=== PATIENT | female | born 1955 | race Hispanic/Latino ===

== ENCOUNTER 2018-06-04 14:24 | Outpatient (CLI) | payer OTHER | END 2018-06-04 14:25 | disposition home or self-care (01) | LOC: BICMAMMO 14:24 | PROVIDERS: ATTEND Family Medicine | DX: Z12.31 Encounter for screening mammogram for malignant neoplasm of breast (principal); R92.1 Mammographic calcification found on diagnostic imaging of breast | CPT/HCPCS: 77063; 77067 ==

== ENCOUNTER 2018-12-12 13:37 | Outpatient (CLI) | payer BC ==
[2018-12-12 14:47] LABS: PTT 29.1 SEC (22.9-36.1); Prothrombin Time 12.9 SEC (12.0-14.7)
[2018-12-12 15:08] LABS: ALT (SGPT) 12 U/L (8-55); AST (SGOT) 11 U/L (5-34); Albumin 4.5 g/dL (3.4-4.8); Alkaline Phosphatase 119 U/L (40-150); Anion Gap 12 mmol/L (10-20); BUN (Urea Nitrogen) 15 mg/dL (9.8-20.1); Bilirubin, Direct 0.3 mg/dL (0.1-0.3); Bilirubin, Total 0.7 mg/dL (0.2-1.2); Calc. Creatinine Clearance 0 mL/min (70-130); Calcium 9.7 mg/dL (7.8-10.44); Carbon Dioxide 27 mmol/L (23-31); Chloride 104 mmol/L (98-107); Estimated GFR-MDRD Greater than 90; Globulin 2.7 g/dL (2.4-3.5); Glucose 91 mg/dL (80-115); Potassium 3.8 mmol/L (3.5-5.1); Protein, Total 7.2 g/dL (6.0-8.3); Sodium 139 mmol/L (136-145)
== END 2018-12-12 13:38 | disposition home or self-care (01) ==
LOC: LABBT 13:37
PROVIDERS: ATTEND Internal Medicine Cardiovascular Disease
DX: Z01.812 Encounter for preprocedural laboratory examination (principal); R94.39 Abnormal result of other cardiovascular function study
CPT/HCPCS: 80053; 80076; 85610; 85730

== ENCOUNTER 2018-12-14 07:01 | Day surgery (SDC) | payer BC ==
[2018-12-13 14:16] VITALS: BMI 31.8
[2018-12-14 07:52] LABS: Cardiac Risk 2.7 (Less than 4.5)
[2018-12-14] MEDS ORDERED: Midazolam HCl 2 mg/2 ml Vial ONE (08:02)
[2018-12-14] MEDS ORDERED: Acetaminophen/Codeine 30-300mg Tablet ONE (11:30)
--- NOTE | 2018-12-14 13:04 | CON ---
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 Her problems are, 1. Episode of palpitations, near syncope, prompting an event monitor in November 2018 demonstrating a wide-complex arrhythmia runs. 2. Structurally normal heart by left heart catheterization, normal LVEF and normal coronary arteries on 12/14/2018. No history of significant structural heart disease as per echo per Dr. Wharton's report. 3. Personal history of diabetes, hyperlipidemia, cholesterolemia, and hypothyroidism on replacement. 4. Family history of sudden cardiac of the brother while zip lining at age 55 and SVT ablation of a sister. 5. History of asthma. ALLERGIES: NONE. MEDICATIONS AT HOME: Include Tresiba, metformin, Lipitor, levothyroxine, losartan, aspirin, biotin, Ocuvite, metoprolol succinate. 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 The episode lasted about a minute. She did not completely pass out, but was in significant distress and her pulse oximeter demonstrated heart rates in the 190s. She has had her nurse prepare an EKG, but by the time she was back in normal rhythm. She had a similar episode also on November 30 most recently. She denies angina-like discomforts. No PND, orthopnea, or lower extremity with fluid overload. No fever, chills, or cough. No PND or orthopnea. Rest of 12-point system otherwise unremarkable. PAST MEDICAL HISTORY: As above. SOCIAL HISTORY: She is a physician. Denies smoking, EtOH, or drug abuse. FAMILY HISTORY: Significant for a brother suffering a sudden cardiac [place] and a sister with SVT ablation recently. OBJECTIVE DATA: VITAL SIGNS: Blood pressure is 138/80, heart rate is 68, respirations are normal range. The patient appears afebrile. GENERAL: Reveals an alert and oriented woman, mildly elevated BMI, in no apparent distress. NECK: Supple. Jugular veins not distended. CHEST: Coarse without wheezing. Normal breath sounds are heard. No dullness. HEART: The heart sounds are regular to rate and rhythm. No gallop or significant murmur is appreciated. ABDOMEN: Benign. Bowel sounds are positive. EXTREMITIES: Lower extremities without edema, clubbing, or cyanosis. Pulses are adequate. NEUROLOGIC: The patient is nonfocal. MUSCULOSKELETAL: Without joint swelling or deformity. SKIN: Without rash. DATABASE: The EKG is reviewed from Dr. Wharton's office revealing normal EKG. No signs of pre-excitation. Normal QT interval at 358 milliseconds. The event monitor strips were reviewed from December 06 revealing about 10 seconds duration of a wide-complex arrhythmia preceded by P-waves markedly different than the baseline , narrow complex QRS, suggestive of likely nonsustained ventricular tachycardia. LABORATORY DATA: Sodium is 139, potassium is 3.8, BUN is 15, creatinine is 0.64. AST and ALT are normal. TSH is 0.0179 in 2014. More recent TSH was in normal range according to her. White blood cell count is 7.9, hemoglobin is 14.8, platelet count is 311. 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 Also, very concerning is the family history of sudden cardiac of her brother, likely due to a ventricular fibrillation arrest. 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 Less likely would be related to subclinical cardiomyopathy. So far, there is no evidence of or although ARVD might be reasonable to be ruled out with cardiac MRI. We could consider risk stratifying EP study. If severe, hemodynamically significant ventricular tachy-arrhythmias are induced, ICD implantation could be a potential consideration. On the other hand, if recurrent VT is seen, ablation therapy is a likely better option. We had also discussed pros and cons of a genetic testing, and we will decide on that at the next followup visit. In the meantime, I agree with the initiated beta-uziel therapy. If indeed, no additional cardiomyopathy found, the class 1C agents also could be helpful to suppress these arrhythmias, if medical therapy is preferred. These options were detailed to her for now. She is undecided and we will have her arrange a followup in our office. Thank you again for allowing me to participate in the care of this patient. Job ID: [id number] IVONNE
[2018-12-14] MEDS ORDERED: Iopamidol 370 76% 100 ML VIAL ONE (16:59)
== END 2018-12-14 13:39 | disposition home or self-care (01) ==
LOC: CCL 07:01
PROVIDERS: ATTEND Internal Medicine Cardiovascular Disease
PROC: B2111ZZ Fluoroscopy of Multiple Coronary Arteries using Low Osmolar Contrast (ICD-10-PCS; principal; 2018-12-14)
PROC: 4A023N7 Measurement of Cardiac Sampling and Pressure, Left Heart, Percutaneous Approach (ICD-10-PCS; principal; 2018-12-14)
DX: R94.39 Abnormal result of other cardiovascular function study (principal); I47.2 Ventricular tachycardia; E11.9 Type 2 diabetes mellitus without complications; J45.909 Unspecified asthma, uncomplicated; E78.5 Hyperlipidemia, unspecified; E03.9 Hypothyroidism, unspecified; Z79.84 Long term (current) use of oral hypoglycemic drugs; Z79.82 Long term (current) use of aspirin; Z79.899 Other long term (current) drug therapy
CPT/HCPCS: 36415; 36416; 80061; 93458; 99152; 99153; C1769; J1644; J2250; Q9967

== ENCOUNTER 2020-07-08 13:03 | Outpatient (CLI) | payer MEDICARE ==
--- NOTE | 2020-07-08 13:41 | MMO ---
Bilateral MAMMO Bilat Screen [facility]. CLINICAL HISTORY: Patient is 64 years old and is seen for screening. The patient has no family history of breast cancer. The patient has no personal history of cancer. VIEWS: The views performed were: bilateral craniocaudal with tomosynthesis and bilateral mediolateral oblique with tomosynthesis. FILMS COMPARED: The present examination has been compared to prior imaging studies performed at [facility] on 05/12/2017 and 06/04/2018, and at [facility] on 01/26/2015 and 04/01/2016. This study has been interpreted with the assistance of computer-aided detection. MAMMOGRAM FINDINGS: There are scattered fibroglandular densities. Benign calcifications are noted bilaterally. There are no suspicious masses, suspicious calcifications, or new areas of architectural distortion. IMPRESSION: THERE IS NO MAMMOGRAPHIC EVIDENCE OF MALIGNANCY. A ROUTINE FOLLOW-UP MAMMOGRAM IN 1 YEAR IS RECOMMENDED. THE RESULTS OF THIS EXAM WERE SENT TO THE PATIENT. ACR BI-RADS Category 2 - Benign finding MAMMOGRAPHY NOTE: 1. A negative mammogram report should not delay a biopsy if a dominant of clinically suspicious mass is present. 2. Approximately 10% to 15% of breast cancers are not detected by mammography. 3. Adenosis and dense breasts may obscure an underlying neoplasm. Reported by: ANTOLIN OLSEN MD Electonically Signed: [id number]
== END 2020-07-08 13:04 | disposition home or self-care (01) ==
LOC: BICMAMMO 13:03
PROVIDERS: ATTEND Family Medicine
DX: Z12.31 Encounter for screening mammogram for malignant neoplasm of breast (principal)
CPT/HCPCS: 77063; 77067

== ENCOUNTER 2021-07-29 14:29 | Outpatient (CLI) | payer MEDICARE | END 2021-07-29 14:30 | disposition home or self-care (01) | LOC: BICMAMMO 14:29 | PROVIDERS: ATTEND Family Medicine | DX: Z12.31 Encounter for screening mammogram for malignant neoplasm of breast (principal) | CPT/HCPCS: 77063; 77067 ==

== ENCOUNTER 2023-07-21 07:06 | Outpatient (CLI) | payer BC ==
[2023-07-21 08:01] LABS: #Basophils 0.1 10x3/uL (0.0-0.2); #Eosinphils 0.3 10x3/uL (0.0-0.5); #Monocytes 0.6 10x3/uL (0.0-1.1); #Neutrophils 6.8 10x3/uL (1.5-8.4); %Basophils 0.7 % (0.0-2.0); %Eosinophils 3.1 % (0.0-6.0); %Monocytes 6.1 % (0.0-10.0); %Neutrophils 72.9 % (40.0-75.0); Hematocrit 36.6 % (34.9-44.5); Hemoglobin 11.6 g/dL (12.0-15.5); Mean Corpuscular HGB CONC 31.7 g/dL (32.0-36.0); Mean Corpuscular Volume 85.1 fl (81.6-98.3); Mean Platelet Volume 9.6 fl (7.4-10.4); Platelet Count 337 10x3/uL (150-450); RBC Distribution Width 14.1 % (11.5-14.5); White Blood Cell (WBC) Count 9.3 10x3/uL (3.5-10.5)
[2023-07-21 08:14] LABS: INR-International Normal Ratio 0.9; Prothrombin Time 9.9 sec (9.5-12.1)
[2023-07-21 13:45] LABS: Hemoglobin A1c 6.1 % (4.0-6.0)
== END 2023-07-21 07:07 | disposition home or self-care (01) ==
LOC: LABBT 07:06
PROVIDERS: ATTEND Orthopaedic Surgery
DX: Z01.818 Encounter for other preprocedural examination (principal); M17.12 Unilateral primary osteoarthritis, left knee
CPT/HCPCS: 83036; 85025; 85610; 87081; 93005; 93010

== ENCOUNTER 2023-07-25 05:51 | Observation (INO) | payer BC ==
[2023-07-21 07:43] VITALS: BMI 26.3
[2023-07-25] MEDS ORDERED: Midazolam HCl 2 mg/2 ml Vial ONE (06:18)
[2023-07-25] MEDS ORDERED: PROPOFOL 20 ML ONE (06:18)
[2023-07-25] MEDS ORDERED: fentaNYL PF 100 MCG/2 ML SYRINGE ONE (06:18)
[2023-07-25] MEDS ORDERED: Bupivacaine 0.25% HCL 30 ML VIAL ONE (06:31)
[2023-07-25] MEDS ORDERED: EPINEPHrine 1 MG/ML VIAL ONE (06:31)
[2023-07-25] MEDS ORDERED: Tranexamic Acid 1,000 MG/10 ML VIAL ONE (06:36)
[2023-07-25] MEDS ORDERED: Sodium Chloride 0.9% 100 ML ONE ×2 (06:36→06:50)
[2023-07-25] MEDS ORDERED: Vancomycin 1 GM/200 ML (FROZEN) BAG ONE (06:36)
[2023-07-25] MEDS ORDERED: Lidocaine 1% (PF) 30 ML VIAL ONE (06:48)
[2023-07-25] MEDS ORDERED: CEFAZOLIN 2 GM VIAL ONE (06:50)
[2023-07-25] MEDS ORDERED: Ondansetron PF 4 MG/2 ML Vial ONE ×2 (06:55→08:09)
[2023-07-25] MEDS ORDERED: Ketorolac Tromethamine 30 MG/ML VIAL ONE ×2 (06:55→08:44)
[2023-07-25] MEDS ORDERED: diphenhydrAMINE 50 MG/ML VIAL ONE (06:55)
[2023-07-25] MEDS ORDERED: Lidocaine 1% PF 5 ML VIAL ONE (06:55)
[2023-07-25] MEDS ORDERED: PROPOFOL 200 MG/20 ML VIAL ONE (06:55)
[2023-07-25] MEDS ORDERED: Bupivacaine PF 0.5% 30 ML VIAL ONE (07:12)
[2023-07-25] MEDS ORDERED: fentaNYL 50 mcg/mL 1 mL Vial SLOW IVP PRN (07:46)
[2023-07-25] MEDS ORDERED: HYDROcodone/Acetaminophen 10/325 mg Tablet PO PRN ×2 (08:00)
[2023-07-25] MEDS ORDERED: traMADol HCl 50 MG TAB PO PRN ×2 (08:00)
[2023-07-25] MEDS ORDERED: Promethazine HCl 25 MG/ML VIAL IM PRN ×3 (08:00→09:23)
[2023-07-25] MEDS ORDERED: Ondansetron PF 4 MG/2 ML Vial IVP PRN ×2 (08:00→09:23)
[2023-07-25] MEDS ORDERED: Ropivacaine 0.2% 550 ML 550 ML NERVE BLCK SCH (08:00)
[2023-07-25] MEDS ORDERED: Zolpidem Tartrate 5 MG TAB PO PRN ×2 (08:00→09:23)
[2023-07-25] MEDS ORDERED: fentaNYL 50 mcg/mL 1 mL Vial ONE ×2 (08:02→09:05)
[2023-07-25] MEDS ORDERED: Meperidine HCl/PF 25 MG/ML VIAL SLOW IVP PRN (08:06)
[2023-07-25] MEDS ORDERED: Ondansetron HCl/PF 4 MG/2 ML Vial IVP PRN (08:06)
[2023-07-25] MEDS ORDERED: HYDROmorphone 2 MG/ML VIAL SLOW IVP PRN (08:06)
[2023-07-25] MEDS ORDERED: Dexamethasone 4 mg/ml Vial ONE (08:09)
[2023-07-25] MEDS ORDERED: Ferrous Gluconate 324 MG TAB PO SCH (09:00)
[2023-07-25] MEDS ORDERED: OZEMPIC 1 MG SC SCH (09:00)
[2023-07-25] MEDS ORDERED: diphenhydrAMINE 25 MG CAP PO PRN (09:23)
[2023-07-25] MEDS ORDERED: Acetaminophen 325 MG TAB PO PRN (09:23)
[2023-07-25] MEDS: Sodium Chloride 0.9% 1,000 ML IV SCH ×2 (11:11→20:32)
[2023-07-25] MEDS: Senokot S 8.6-50 MG TAB PO SCH ×2 (11:11→20:31)
[2023-07-25] MEDS: Multivitamin W/ Minerals 1 TAB PO SCH (11:11)
[2023-07-25 13:33] LABS: #Basophils 0.1 thou/uL (0.0-0.2); #Eosinphils 0.1 thou/uL (0.0-0.7); #Monocytes 0.6 thou/uL (0.11-0.59); #Neutrophils 8.4 thou/uL (1.40-6.50); %Basophils 0.5 % (0.0-1.0); %Eosinophils 1.3 % (0.0-10.0); %Lymphocytes 14.7 % (21.0-51.0); %Monocytes 5.4 % (0.0-10.0); %Neutrophils 77.7 % (42.0-75.0); Hematocrit 33.3 % (36.0-47.0); Hemoglobin 10.5 g/dL (12.0-16.0); Mean Corpuscular HGB CONC 31.5 g/dL (32.0-36.0); Mean Corpuscular Hemoglobin 27.4 pg (27.0-31.0); Mean Corpuscular Volume 86.9 fl (78.0-98.0); Platelet Count 349 10x3/uL (130-400); Red Blood Cell (RBC) Count 3.83 mill/uL (4.20-5.40); White Blood Cell (WBC) Count 10.8 10x3/uL (4.8-10.8)
[2023-07-25 13:53] LABS: Anion Gap 12 mmol/L (10-20); BUN (Urea Nitrogen) 5 mg/dL (9.8-20.1); Calc. Creatinine Clearance 96 mL/min (70-130); Calcium 8.4 mg/dL (7.8-10.44); Carbon Dioxide 27 mmol/L (23-31); Chloride 104 mmol/L (98-107); Estimated GFR 99; Glucose 87 mg/dL (80-115); Potassium 3.7 mmol/L (3.5-5.1); Sodium 139 mmol/L (136-145)
[2023-07-25] MEDS: CEFAZOLIN 2 GM in Sodium Chloride 0.9% 100 ML IVPB SCH ×2 (14:21→22:17)
[2023-07-25] MEDS: Ketorolac Tromethamine 30 MG/ML VIAL IVP SCH ×3 (14:29→23:30)
[2023-07-25] MEDS ORDERED: Mometasone 200 MCG/Formoterol 5 MCG 120 PUFF INHALER INH SCH (18:30)
[2023-07-25] MEDS: Mometasone 200 MCG/Formoterol 5 MCG 120 PUFF INHALER INH SCH (18:52)
[2023-07-25] MEDS ORDERED: Montelukast Sodium 10 mg Tablet PO SCH (21:00)
[2023-07-25] MEDS ORDERED: Atorvastatin Calcium 20 MG TAB PO SCH ×2 (21:00)
[2023-07-26] MEDS ORDERED: Levothyroxine Sodium 75 MCG TAB PO SCH (06:00)
[2023-07-26 06:01] LABS: Hematocrit 29.7 % (36.0-47.0); Hemoglobin 9.3 g/dL (12.0-16.0); Mean Corpuscular HGB CONC 31.3 g/dL (32.0-36.0); Mean Corpuscular Hemoglobin 26.8 pg (27.0-31.0); Mean Corpuscular Volume 85.6 fl (78.0-98.0); Mean Platelet Volume 9.5 fL (7.4-10.4); Platelet Count 326 10x3/uL (130-400); Red Blood Cell (RBC) Count 3.47 mill/uL (4.20-5.40); White Blood Cell (WBC) Count 8.3 10x3/uL (4.8-10.8)
[2023-07-26] MEDS: Ketorolac Tromethamine 30 MG/ML VIAL IVP SCH ×2 (06:22→13:44)
[2023-07-26] MEDS: Mometasone 200 MCG/Formoterol 5 MCG 120 PUFF INHALER INH SCH (07:32)
[2023-07-26] MEDS: Sodium Chloride 0.9% 1,000 ML IV SCH (07:46)
[2023-07-26] MEDS ORDERED: metFORMIN 500 MG TAB PO SCH (08:00)
[2023-07-26] MEDS ORDERED: Cyanocobalamin (Vitamin B-12) 1,000 MCG TAB PO SCH ×2 (09:00)
[2023-07-26] MEDS ORDERED: Apixaban 2.5 MG TAB PO SCH ×2 (09:00→21:00)
[2023-07-26] MEDS ORDERED: Losartan 25 MG TAB PO SCH (09:00)
[2023-07-26] MEDS ORDERED: Ferrous Gluconate 324 MG TAB PO SCH (09:00)
[2023-07-26] MEDS ORDERED: Cholecalciferol 1,000 UNITS (25 MCG) TAB PO SCH ×2 (09:00)
[2023-07-26] MEDS ORDERED: Insulin Glargine 30 UNITS/0.3 ML VIAL SC SCH (09:00)
[2023-07-26] MEDS: Multivitamin W/ Minerals 1 TAB PO SCH (09:02)
[2023-07-26] MEDS: Senokot S 8.6-50 MG TAB PO SCH (09:02)
[2023-07-26 12:10] VITALS: BP 111/70; TEMP 98.1
== END 2023-07-26 12:45 | disposition home or self-care (01) ==
LOC: SDC 05:51 → SURG B 09:23
PROVIDERS: ADMIT Orthopaedic Surgery; ATTEND Orthopaedic Surgery
PROC: 0SRD0JZ Replacement of Left Knee Joint with Synthetic Substitute, Open Approach (ICD-10-PCS; principal; 2023-07-26)
DX: M17.12 Unilateral primary osteoarthritis, left knee (principal); I47.20 Ventricular tachycardia, unspecified; D68.51 Activated protein C resistance; E11.9 Type 2 diabetes mellitus without complications; I10 Essential (primary) hypertension; E78.5 Hyperlipidemia, unspecified; E03.9 Hypothyroidism, unspecified; E06.3 Autoimmune thyroiditis; J45.909 Unspecified asthma, uncomplicated; Z86.010 Personal history of colon polyps; Z98.890 Other specified postprocedural states; Z91.040 Latex allergy status; Z88.8 Allergy status to other drugs, medicaments and biological substances; Z79.4 Long term (current) use of insulin
CPT/HCPCS: 36415; 36416; 80048; 85025; 85027; 94664; A4306; C1713; C1776; J0171; J1100; J1200; J1815; J1885; J2001; J2250; J2405; J2704; J2795; J3010; J3370-JW; J3490; S0020